=== PATIENT | female | born 1930 | race Caucasian/White ===

== ENCOUNTER 2018-05-14 20:18 | Inpatient (IN) | payer MEDICARE, MEDICAID ==
[2018-05-13 23:00] VITALS: BP 190/76
[~2018-05-14] VITALS: Ht 162.6 cm; Wt 81.2 kg
[~2018-05-14 20:18] MED LIST: ARIP2TAB11 PO; ASPI81TA31 PO; ATOR20TA27 PO; BISA5TAB10 PO; CIPR-262 PO; CYCL10TA9 PO; DOCU250C88 PO; DONE10TA44 PO; GABA600T2 PO; HYDR-3026 PO; HYDR-548 PO; HYDR4CRE2 RC; IBUP-1955 PO; LEVO50TA8 PO; LISI-607 PO; METF-440 PO; MORP15TA7 PO; MORP30TA PO; ONDA4TAB11 SL; OXYC-451 PO; RANI-551 PO; SENN8.6C5 PO; SERT50TA12 PO; TEMA15CA PO; TOPI100T38 PO; TRAZ-182 PO; [UNRECOGNIZED DRUG - OTHER] PO
--- NOTE | 2018-05-14 20:45 | NUR ---
PATIENT IN BED , AWAKE ALERT ,COHERENT ,ABLE TO ANSWER QUESTIONS AND APPEARS TO BE CALM .ON ROOM AIR ,NO RESPIRATORY DISTRESS NOTED BREATHING EVEN AND UNLABORED .KELLY X4.DENEIS PAIN WHEN ASKED , ADVISED PATIENT TO CALL FOR ASSISTANCE OR HELP AND NOT TO GET UP ALONE .
[2018-05-14 21:24] LABS: BASOPHILS # (AUTO) 0.1 K/uL (0.0-8.0); BASOPHILS % (AUTO) 0.7 % (0.0-2.0); EOSINOPHILS # (AUTO) 0.2 K/uL (0.0-0.7); EOSINOPHILS % (AUTO) 3.5 % (0.0-7.0); HEMATOCRIT 35.3 % (31.2-41.9); HEMOGLOBIN 11.8 g/dL (10.9-14.3); LYMPHOCYTES # (AUTO) 1.6 K/uL (20.0-40.0); LYMPHOCYTES % (AUTO) 22.9 % (20.5-51.5); MEAN CORPUSCULAR HEMOGLOBIN 32.7 uug (24.7-32.8); MEAN CORPUSCULAR HGB CONC 34 g/dL (32.3-35.6); MEAN CORPUSCULAR VOLUME 97.4 fL (75.5-95.3); MONOCYTES # (AUTO) 0.6 K/uL (2.0-10.0); MONOCYTES % (AUTO) 8.8 % (0.0-11.0); NEUTROPHILS # (AUTO) 4.5 K/uL (1.8-8.9); NEUTROPHILS % (AUTO) 64.1 % (38.5-71.5); PLATELET COUNT (AUTO) 201 K/uL (179-408); RED BLOOD CELL COUNT(AUTO) 3.62 MIL/uL (3.63-4.92)
[2018-05-14 21:38] LABS: CARBON DIOXIDE 29 mmol/L (21-32); CHLORIDE 103 mmol/L (98-107); CREATININE 1.1 mg/dL (0.6-1.3); GLUCOSE 125 mg/dL (74-106); POTASSIUM 4.5 mmol/L (3.5-5.1); UREA NITROGEN, BLOOD 35 mg/dL (7-18)
[2018-05-14 21:41] LABS: ETHANOL < 3 MG/DL (0-0)
[2018-05-14 21:43] LABS: ACETAMINOPHEN 11.7 ug/mL (10-30); ALANINE AMINOTRANSFERASE 22 U/L (14-59); ALKALINE PHOSPHATASE 73 U/L (50-136); ASPARTATE AMINOTRANSFERASE 16 U/L (15-37); BILIRUBIN,DIRECT < 0.1 mg/dL (0.0-0.2); BILIRUBIN,TOTAL 0.2 mg/dL (0.2-1.0); TOTAL PROTEIN, SERUM 7.6 g/dL (6.4-8.2)
[2018-05-14 21:47] LABS: THYROID STIMULATING HORMONE 0.767 mIU/mL (0.358-3.740)
--- NOTE | 2018-05-14 21:47 | NUR ---
EKG DONE AND GIVEN TO MD SKAGGS .
[2018-05-14] MEDS ORDERED: OMEG1CAP PO (22:32)
[2018-05-14] MEDS ORDERED: OXYC-128 PO ×2 (22:32)
[2018-05-14] MEDS ORDERED: MAGN400O6 PO (22:32)
[2018-05-14] MEDS ORDERED: TAMS0.4C34 PO (22:32)
[2018-05-14] MEDS ORDERED: CHOL20004 PO (22:32)
[2018-05-14] MEDS ORDERED: SIMV40TA2 PO (22:32)
[2018-05-14] MEDS ORDERED: PRED5DRO16 LEFTEYE (22:32)
[2018-05-14] MEDS ORDERED: TRAZ-182 PO (22:32)
[2018-05-14] MEDS ORDERED: LEVE250T2 PO (22:32)
[2018-05-14] MEDS ORDERED: BENZ0.5T43 PO (22:32)
[2018-05-14] MEDS ORDERED: PANT40TA2 PO (22:32)
[2018-05-14] MEDS ORDERED: CELE200C PO (22:32)
[2018-05-14] MEDS ORDERED: SERT50TA PO (22:32)
[2018-05-14] MEDS ORDERED: LIDO30AD10 TD (22:32)
[2018-05-14] MEDS ORDERED: MELA3TAB PO (22:32)
[2018-05-14] MEDS ORDERED: LEVO75TA7 PO (22:32)
[2018-05-14] MEDS ORDERED: ONDA4TAB5 PO (22:32)
[2018-05-14] MEDS ORDERED: BLOO-360 IN (22:32)
[2018-05-14] MEDS ORDERED: MAG-5 PO (22:32)
[2018-05-14] MEDS ORDERED: GABA800T2 PO (22:32)
[2018-05-14] MEDS ORDERED: SENN-18 PO (22:32)
[2018-05-14] MEDS ORDERED: HYDR-3326 PO (22:32)
[2018-05-14] MEDS ORDERED: ACET325T53 PO (22:32)
--- NOTE | 2018-05-14 22:32 | NUR ---
REPORT GIVEN TO SHANT WOODARD USING SBAR ,PATIENT IS GOING TO [address].
--- NOTE | 2018-05-14 22:33 | NUR ---
Pt. admitted to [facility] , under care of . Belongs List completed
--- NOTE | 2018-05-14 22:39 | NUR ---
PATIENT ASKED FOR FOOD GIVEN CHOCOLATE PUDDING AND ,APPLESAUCE AND CRANBERRY JUICE .PATIENT ABLE TO FEED SELF WITH GOOD APPETTITE.
[2018-05-14] MEDS ORDERED: MAGNESIUM HYDROXIDE 30 ML LIQUID UDC PO PRN (23:00)
[2018-05-14] MEDS ORDERED: MAG HYDROX/AL HYDROX/SIMETH 30 ML LIQUID UDC PO PRN (23:00)
--- NOTE | 2018-05-14 23:00 | NUR ---
ADMISSION NOTE: UPON FACE TO FACE ASSESSMENT, Pt APPEARS TO REFLECT WHAT IS ON THE HOLD. Pt PRESENTS HYPERVERBAL WITH PRESSURED SPEECH. PERSEVERATES ON HER LEFT ITEMS AT HER FACILITY AND IS FIXATED ON OPIOID PAIN MEDICATIONS. REPORTS 10/10 DEPRESSION AND ANXIETY DUE TO HER LIVING SITUATION AND THE SNF AND HER LACK OF FINANCES. A+Ox1-2, Pt ABLE TO STATE WHERE SHE WAS AT, BUT UNABLE TO NAME THE CORRECT DAY OR MONTH, ALSO UNABLE TO NAME THE CURRENT PRESIDENT. Pt HAS POOR INSIGHT INTO REASON FOR ADMISSION, AND STATES SHE IS HERE, "BECAUSE I COMPLAINED OF REALLY BAD ANXIETY AND THEY TOLD ME THEY COULDN'T GIVE ME ANYTHING UNTIL I SAW A PSYCHIATRIST AT THE HOSPITAL." Pt BLAMES THE DON AT HER FACILITY FOR "YELLING AT ME." EXHIBITS FLAT AFFECT AND LOW MOOD, IS RESTLESS AND ANXIOUS. APPEARS SOMEWHAT DISHEVELED. DENIES SI/HI/AH/VH. REFUSED SHOWER, SKIN CLEAN, DRY, AND INTACT. BP ELEVATED UPON ADMISSION, DR SAAVEDRA NOTIFIED, HYDRALAZINE 25MG X NOW AN Q 6 HOURS PRN, BP MORE STABLE UPON RE-CHECK. Pt C/O 10/10 BACK AND (R) ANKLE PAIN, NORCO 10/325 ORDERED AND ADMINISTERED WITH GOOD EFFECT. DR PYLE NOTIFIED OF ADMISSION, ORDERS RECEIVED, MEDICATIONS RECONCILED. Pt HAS A MEDICAL H/O HYPOTHYROIDISM, DM, SAD, HTN, INSOMNIA, GERD, OA, CHRONIC PAIN, DEMENTIA, TIA, AND AKF. CONTRABAND PLACED IN UNIT LOCKER.
[2018-05-14] MEDS: hydrALAZINE HCL 25 MG TABLET PO PRN (23:37)
[2018-05-14] MEDS: HYDROCODONE/APAP 10-325 MG TABLET PO PRN (23:38)
[2018-05-14] MEDS ORDERED: INSULIN REGULAR, HUMAN 300 UNIT/3 ML VIAL SQ PRN (23:45)
[2018-05-14] MEDS ORDERED: DEXTROSE 50% 50 ML DISP.SYRIN IV PRN (23:45)
[2018-05-15] MEDS: ACETAMINOPHEN 325 MG TABLET PO PRN (03:18)
[2018-05-15] MEDS: LORAZEPAM 0.5 MG TABLET PO PRN ×3 (03:18→22:31)
[2018-05-15 03:34] LABS: *BILIRUBIN,URIN NEGATIVE (NEGATIVE); *BLOOD, URINE NEGATIVE (NEGATIVE); *CLARITY,URINE CLEAR (CLEAR); *COLOR,URINE YELLOW (YELLOW); *KETONES,URINE NEGATIVE (NEGATIVE); *PROTEIN,URINE NEGATIVE (NEGATIVE); *UROBILINOGEN,URINE 0.2 E.U./dl (NORMAL); LEUKOCYTE ESTERASE ,URINE NEGATIVE (NEGATIVE); NITRITE, URINE NEGATIVE (NEGATIVE); UGLUCOSE NEGATIVE (NEGATIVE)
[2018-05-15 03:52] LABS: BACTERIA,URINE MANY /HPF (NONE SEEN); RBC,URINE 0-3 /HPF (0-3); SQUAMOUS EPITHELIAL CELL,UR MODERATE /HPF (NONE SEEN); WBC,URINE 0-3 /HPF (0-3)
[2018-05-15 03:57] LABS: *AMPHETAMINE, URINE NEGATIVE (NEGATIVE); *BARBITURATE, URINE NEGATIVE (NEGATIVE); *CANNABINOID, URINE POSITIVE (NEGATIVE); *COCCAINE, URINE NEGATIVE (NEGATIVE); *OPIATE, URINE POSITIVE (NEGATIVE); *PHENCYCLIDINE SCREEN,URINE NEGATIVE (NEGATIVE)
[2018-05-15] MEDS: BLOOD SUGAR DIAGNOSTIC 1 EACH STRIP VI SCH ×4 (06:40→20:49)
--- NOTE | 2018-05-15 06:52 | NUR ---
AM BS 116, NO COVERAGE PER SS.
[2018-05-15 07:30] VITALS: BP 164/90
[2018-05-15 07:48] LABS: MAGNESIUM 2.3 mg/dL (1.8-2.4); PHOSPHOROUS 3.8 mg/dL (2.5-4.9)
[2018-05-15] MEDS: HYDROCODONE/APAP 10-325 MG TABLET PO PRN ×2 (08:11→20:41)
[2018-05-15] MEDS: LISINOPRIL 10 MG TABLET PO SCH ×2 (08:11→20:32)
[2018-05-15] MEDS: NICOTINE 7 MG/24HR PATCH TD SCH (10:38)
--- NOTE | 2018-05-15 11:07 | NUR ---
Initial Discharge Instructions: Patient currently resides at [facility] [[address] [place] [address]; ]. Per pt, she would like to return there. Spoke with Darya at [facility] who states that the patient is on a 7 day bedhold. Spoke with patient's son, Carrington ([phone]) to gather collateral information. SW will continue to collaborate with pt, family, and MD regarding most appropriate discharge plans for this patient. SW will form a safe and proper discharge plan.
[2018-05-15] MEDS ORDERED: Medication Not On Formulary EA (Gabapentin 600 MG) PO SCH (13:00)
[2018-05-15] MEDS: PANTOPRAZOLE SODIUM 40 MG TABLET.DR PO SCH (14:40)
[2018-05-15] MEDS: ASPIRIN 81 MG TAB.CHEW PO SCH (14:41)
[2018-05-15] MEDS: LIDOCAINE 5% PATCH TD SCH (14:41)
[2018-05-15] MEDS: LEVETIRACETAM 250 MG TABLET PO SCH ×2 (14:41→20:32)
--- NOTE | 2018-05-15 14:49 | NUR ---
PRN ATIVAN ADMINISTERED FOR COMPLAINTS OF ANXIETY, NO CHANGE IN CONDITION NOTED, VITALS STABLE
[2018-05-15] MEDS: GABAPENTIN 300 MG CAPSULE PO SCH ×2 (14:59→20:30)
[2018-05-15 16:00] VITALS: BP 106/51
[2018-05-15] MEDS ORDERED: TOPIRAMATE 100 MG TABLET PO SCH (17:00)
[2018-05-15] MEDS: prednisoLONE ACET 1% OPHT DROP 5 ML BOTTLE LEFTEYE SCH (17:00)
[2018-05-15] MEDS: OMEGA-3 FATTY ACIDS/FISH OIL CAPSULE PO SCH (17:00)
[2018-05-15] MEDS ORDERED: BENZTROPINE MESYLATE 0.5 MG TABLET PO SCH (18:00)
[2018-05-15] MEDS: TAMSULOSIN HCL 0.4 MG CAP.SR.24H PO SCH (20:30)
[2018-05-15] MEDS: SIMVASTATIN 40 MG TABLET PO SCH (20:30)
[2018-05-15] MEDS: SENNOSIDES 1 TABLET PO SCH (20:31)
[2018-05-15] MEDS: hydrALAZINE HCL 25 MG TABLET PO PRN (20:32)
--- NOTE | 2018-05-15 21:00 | NUR ---
received to care, loud, demanding, anxious, and easily agitated. b/p at 1999 was 177/61. PRN hydralazine was given at 2031. PRN norco was given at 2040, for lower back pain 06/17. as of 2099, she remains agitated, but easy to redirect. currently watching tv, with peers. will continue to monitor closely.
[2018-05-15] MEDS: HALOPERIDOL 5 MG TABLET PO SCH (22:01)
[2018-05-15] MEDS: IBUPROFEN 400 MG TABLET PO PRN (22:01)
[2018-05-15] MEDS: BENZTROPINE MESYLATE 1 MG TABLET PO SCH (22:01)
[2018-05-15] MEDS: CARBAMAZEPINE 200 MG TABLET PO SCH (22:01)
--- NOTE | 2018-05-15 22:31 | NUR ---
b/p is now 147/73. pt was seen by Dr Sharma earlier, and he started her on haldol, cogentin, and tegretol. she remains anxious and restless, so she was given PRN ativan, at this time. currently in bed. will continue to monitor closely.
[2018-05-15 22:37] VITALS: BP 147/73
[2018-05-16] MEDS: ACETAMINOPHEN 325 MG TABLET PO PRN ×2 (00:25→06:26)
--- NOTE | 2018-05-16 00:25 | NUR ---
PRN tylenol given for headache. she then went back to bed.
--- NOTE | 2018-05-16 01:00 | NUR ---
appears to be asleep. no distress noted.
[2018-05-16] MEDS: LORAZEPAM 0.5 MG TABLET PO PRN ×2 (04:37→16:06)
--- NOTE | 2018-05-16 04:37 | NUR ---
PRN ativan given for anxiety.
[2018-05-16] MEDS: BLOOD SUGAR DIAGNOSTIC 1 EACH STRIP VI SCH ×4 (06:04→20:18)
[2018-05-16] MEDS: LEVOTHYROXINE SODIUM 75 MCG TABLET PO SCH (06:04)
--- NOTE | 2018-05-16 06:22 | NUR ---
appears calmer, now. slept 8 hours, total.
[2018-05-16 07:30] VITALS: BP 121/51
[2018-05-16] MEDS: LIDOCAINE 5% PATCH TD SCH (08:13)
[2018-05-16] MEDS: prednisoLONE ACET 1% OPHT DROP 5 ML BOTTLE LEFTEYE SCH ×2 (08:13→16:20)
[2018-05-16] MEDS: NICOTINE 7 MG/24HR PATCH TD SCH (08:14)
[2018-05-16] MEDS: PANTOPRAZOLE SODIUM 40 MG TABLET.DR PO SCH (08:14)
[2018-05-16] MEDS: OMEGA-3 FATTY ACIDS/FISH OIL CAPSULE PO SCH ×2 (08:14→16:20)
[2018-05-16] MEDS: GABAPENTIN 300 MG CAPSULE PO SCH ×2 (08:14→20:12)
[2018-05-16] MEDS: CHOLECALCIFEROL 1,000 UNIT TABLET PO SCH (08:14)
[2018-05-16] MEDS: BENZTROPINE MESYLATE 1 MG TABLET PO SCH ×2 (08:14→20:12)
[2018-05-16] MEDS: HALOPERIDOL 5 MG TABLET PO SCH ×2 (08:14→20:12)
[2018-05-16] MEDS: ASPIRIN 81 MG TAB.CHEW PO SCH (08:14)
[2018-05-16] MEDS: DOCUSATE SODIUM 250 MG CAPSULE PO SCH (08:15)
[2018-05-16] MEDS: LEVETIRACETAM 250 MG TABLET PO SCH ×2 (08:15→20:15)
[2018-05-16] MEDS: CARBAMAZEPINE 200 MG TABLET PO SCH ×2 (08:15→20:12)
[2018-05-16] MEDS: LISINOPRIL 10 MG TABLET PO SCH ×2 (08:16→20:12)
[2018-05-16] MEDS: HYDROCODONE/APAP 10-325 MG TABLET PO PRN ×3 (08:17→21:05)
[2018-05-16] MEDS ORDERED: CHOLECALCIFEROL U PO SCH (09:00)
[2018-05-16] MEDS ORDERED: MORPHINE SULFATE IR 30 MG TABLET PO SCH (09:00)
[2018-05-16] MEDS ORDERED: [UNRECOGNIZED DRUG - OTHER] PO SCH (09:00)
[2018-05-16 09:33] VITALS: BP 121/51
--- NOTE | 2018-05-16 14:42 | NUR ---
GPS: Nurses notes: Mood disturbance/depression: Patient awake and responding to her name, overly demanding at times, depressed mood, anxious affect, setting limits, but patient continue to be overly demanding. Redirected during shift. She has poor grooming, unkempt appearance, constantly asking for narcotics, needs prompting to participate in therapeutic groups, with episodes of pacing in the hallway, unable to formulate a viable plan for self care. Will continue with treatment plan.
[2018-05-16] MEDS: IBUPROFEN 400 MG TABLET PO PRN ×2 (14:51→22:27)
[2018-05-16 15:09] VITALS: BP 115/44
--- NOTE | 2018-05-16 16:54 | NUR ---
GPS: Nursing Notes: FBS: Patient's KYD=[id number], continue with Insulin sliding scale per MD order, continue treatment plan.
[2018-05-16] MEDS: SENNOSIDES 1 TABLET PO SCH (20:12)
[2018-05-16] MEDS: SIMVASTATIN 40 MG TABLET PO SCH (20:12)
[2018-05-16] MEDS: TAMSULOSIN HCL 0.4 MG CAP.SR.24H PO SCH (20:12)
[2018-05-16 20:29] VITALS: BP 129/52
[2018-05-16] MEDS: TEMAZEPAM 7.5 MG CAPSULE PO PRN (22:27)
[2018-05-17] MEDS: ACETAMINOPHEN 325 MG TABLET PO PRN ×3 (02:47→23:03)
[2018-05-17] MEDS: LORAZEPAM 0.5 MG TABLET PO PRN ×3 (04:34→23:03)
[2018-05-17] MEDS: HYDROCODONE/APAP 10-325 MG TABLET PO PRN ×3 (04:38→17:18)
--- NOTE | 2018-05-17 04:40 | NUR ---
GPS: Pt.is anxious,restless and complaining of severe pain on both of her legs. Medicated as ordered. Re-assured frequently. Rest periods encouraged to facilitate relief. Will continue to monitor.
[2018-05-17] MEDS: LEVOTHYROXINE SODIUM 75 MCG TABLET PO SCH (06:23)
[2018-05-17] MEDS: BLOOD SUGAR DIAGNOSTIC 1 EACH STRIP VI SCH ×4 (06:32→20:16)
[2018-05-17 07:30] VITALS: BP 138/48
[2018-05-17] MEDS: NICOTINE 7 MG/24HR PATCH TD SCH (08:29)
[2018-05-17] MEDS: prednisoLONE ACET 1% OPHT DROP 5 ML BOTTLE LEFTEYE SCH ×2 (08:29→17:17)
[2018-05-17] MEDS: LIDOCAINE 5% PATCH TD SCH (08:29)
[2018-05-17] MEDS: LEVETIRACETAM 250 MG TABLET PO SCH ×2 (08:30→20:19)
[2018-05-17] MEDS: GABAPENTIN 300 MG CAPSULE PO SCH ×2 (08:30→20:19)
[2018-05-17] MEDS: OMEGA-3 FATTY ACIDS/FISH OIL CAPSULE PO SCH ×2 (08:30→17:18)
[2018-05-17] MEDS: BENZTROPINE MESYLATE 1 MG TABLET PO SCH ×2 (08:30→17:27)
[2018-05-17] MEDS: CHOLECALCIFEROL 1,000 UNIT TABLET PO SCH (08:30)
[2018-05-17] MEDS: ASPIRIN 81 MG TAB.CHEW PO SCH (08:30)
[2018-05-17] MEDS: DOCUSATE SODIUM 250 MG CAPSULE PO SCH (08:30)
[2018-05-17] MEDS: PANTOPRAZOLE SODIUM 40 MG TABLET.DR PO SCH (08:30)
[2018-05-17] MEDS: HALOPERIDOL 5 MG TABLET PO SCH ×2 (08:30→17:27)
[2018-05-17] MEDS: CARBAMAZEPINE 200 MG TABLET PO SCH ×2 (08:30→20:19)
[2018-05-17] MEDS: LISINOPRIL 10 MG TABLET PO SCH ×2 (08:31→20:19)
[2018-05-17] MEDS: IBUPROFEN 400 MG TABLET PO PRN (10:26)
[2018-05-17] MEDS: hydrALAZINE HCL 25 MG TABLET PO PRN (11:53)
[2018-05-17 16:11] VITALS: BP 130/50
[2018-05-17 20:00] VITALS: BP 137/63
[2018-05-17] MEDS: SENNOSIDES 1 TABLET PO SCH (20:19)
[2018-05-17] MEDS: SIMVASTATIN 40 MG TABLET PO SCH (20:19)
[2018-05-17] MEDS: TAMSULOSIN HCL 0.4 MG CAP.SR.24H PO SCH (20:19)
[2018-05-17] MEDS: TEMAZEPAM 7.5 MG CAPSULE PO PRN (22:16)
[2018-05-18] MEDS: HYDROCODONE/APAP 10-325 MG TABLET PO PRN ×4 (02:55→22:05)
--- NOTE | 2018-05-18 03:20 | NUR ---
GPS: Pt. constantly at nurses station and asking for her [place]. Pt. was reminded that she just got it not too long ago. Pt.is very forgetful at this time. Constant re-assurance/re-direction provided by staff at this time. Instructed to rest in bed to facilitate relief. Will continue to monitor.
[2018-05-18] MEDS: LEVOTHYROXINE SODIUM 75 MCG TABLET PO SCH (06:20)
[2018-05-18 07:30] VITALS: BP 120/54
--- NOTE | 2018-05-18 08:05 | NUR ---
Pt.in bed A/A/Ox2,no s/s of distress,denies pain @ time.
[2018-05-18] MEDS: DOCUSATE SODIUM 250 MG CAPSULE PO SCH (08:10)
[2018-05-18] MEDS: OMEGA-3 FATTY ACIDS/FISH OIL CAPSULE PO SCH ×2 (08:10→16:49)
[2018-05-18] MEDS: prednisoLONE ACET 1% OPHT DROP 5 ML BOTTLE LEFTEYE SCH (08:10)
[2018-05-18] MEDS: BENZTROPINE MESYLATE 1 MG TABLET PO SCH ×3 (08:10→16:49)
[2018-05-18] MEDS: CHOLECALCIFEROL 1,000 UNIT TABLET PO SCH (08:11)
[2018-05-18] MEDS: GABAPENTIN 300 MG CAPSULE PO SCH ×2 (08:11→20:03)
[2018-05-18] MEDS: ASPIRIN 81 MG TAB.CHEW PO SCH (08:11)
[2018-05-18] MEDS: LISINOPRIL 10 MG TABLET PO SCH ×2 (08:11→20:04)
[2018-05-18] MEDS: HALOPERIDOL 5 MG TABLET PO SCH ×3 (08:11→16:49)
[2018-05-18] MEDS: LEVETIRACETAM 250 MG TABLET PO SCH ×2 (08:11→20:05)
[2018-05-18] MEDS: NICOTINE 7 MG/24HR PATCH TD SCH (08:11)
[2018-05-18] MEDS: CARBAMAZEPINE 200 MG TABLET PO SCH (08:11)
[2018-05-18] MEDS: PANTOPRAZOLE SODIUM 40 MG TABLET.DR PO SCH (08:11)
[2018-05-18] MEDS: LIDOCAINE 5% PATCH TD SCH (08:11)
[2018-05-18] MEDS: LORAZEPAM 0.5 MG TABLET PO PRN ×2 (08:17→15:32)
[2018-05-18 12:34] LABS: *BILIRUBIN,URIN NEGATIVE (NEGATIVE); *BLOOD, URINE NEGATIVE (NEGATIVE); *CLARITY,URINE CLEAR (CLEAR); *COLOR,URINE YELLOW (YELLOW); *KETONES,URINE NEGATIVE (NEGATIVE); *PROTEIN,URINE NEGATIVE (NEGATIVE); *UROBILINOGEN,URINE 0.2 E.U./dl (NORMAL); LEUKOCYTE ESTERASE ,URINE NEGATIVE (NEGATIVE); NITRITE, URINE NEGATIVE (NEGATIVE); UGLUCOSE NEGATIVE (NEGATIVE)
--- NOTE | 2018-05-18 13:47 | NUR ---
DC Planning Note: Spoke with Vanda at [facility] ([address] [place] [address]; [phone]). Vanda made aware of DC plan for patient to return to [facility] upon discharge, as patient is still on 7-day bed hold that expires on 03/20/18. YANNICK will continue to collaborate with treatment team to ensure safe discharge plan.
[2018-05-18 15:39] VITALS: BP 163/70
[2018-05-18 16:44] LABS: ALANINE AMINOTRANSFERASE 22 U/L (14-59); ALKALINE PHOSPHATASE 73 U/L (50-136); ASPARTATE AMINOTRANSFERASE 22 U/L (15-37); BILIRUBIN,TOTAL 0.2 mg/dL (0.2-1.0); CARBON DIOXIDE 23 mmol/L (21-32); CHLORIDE 93 mmol/L (98-107); GLUCOSE 106 mg/dL (74-106); MAGNESIUM 1.8 mg/dL (1.8-2.4); POTASSIUM 4.6 mmol/L (3.5-5.1); TOTAL PROTEIN, SERUM 7.6 g/dL (6.4-8.2); UREA NITROGEN, BLOOD 20 mg/dL (7-18)
--- NOTE | 2018-05-18 17:18 | NUR ---
Pt.in activity room watching TV,denies any pain,no s/s of distress.
--- NOTE | 2018-05-18 18:00 | NUR ---
PT'S SODIUM IS 124 AT 1600 TODAY. LAST SODIUM ON 05/[address] SAAVEDRA WAS NOTIFIED. NO NEW ORDERS AT THIS TIME.
[2018-05-18] MEDS: IBUPROFEN 400 MG TABLET PO PRN (18:20)
[2018-05-18 19:30] VITALS: BP 168/72
[2018-05-18] MEDS: SENNOSIDES 1 TABLET PO SCH (20:03)
[2018-05-18] MEDS: TAMSULOSIN HCL 0.4 MG CAP.SR.24H PO SCH (20:03)
[2018-05-18] MEDS: SIMVASTATIN 40 MG TABLET PO SCH (20:04)
[2018-05-18 21:20] VITALS: BP 149/53
[2018-05-18] MEDS: TEMAZEPAM 7.5 MG CAPSULE PO PRN (23:08)
[2018-05-19] MEDS: LORAZEPAM 0.5 MG TABLET PO PRN ×2 (01:29→08:18)
--- NOTE | 2018-05-19 01:30 | NUR ---
GPS: Pt.is anxious and restless at this time. Frequently at nurses station and asking for more meds.to take. Pt.is forgetful,irritable and difficult to re-direct. Re-assured frequently by staff. Ativan 0.25 mg given. Also was given Tyl. 650 mg for sharon.leg pains. Encouraged to stay in bed/rest to facilitate relief. Will continue to monitor.
[2018-05-19] MEDS: ACETAMINOPHEN 325 MG TABLET PO PRN (01:31)
[2018-05-19] MEDS: LEVOTHYROXINE SODIUM 75 MCG TABLET PO SCH (06:03)
--- NOTE | 2018-05-19 06:25 | NUR ---
GPS: Pt.is up on her w/c at this time and able to wheel self around the unit. Less anxious and restless at this time. Re-directed and re-assured prn. Denies any pain at this time when asked. Safety emphasized. Will continue to monitor.
[2018-05-19 07:30] VITALS: BP 131/46
[2018-05-19 07:30] LABS: CARBON DIOXIDE 24 mmol/L (21-32); CHLORIDE 93 mmol/L (98-107); CREATININE 0.8 mg/dL (0.6-1.3); GLUCOSE 111 mg/dL (74-106); POTASSIUM 4.2 mmol/L (3.5-5.1); UREA NITROGEN, BLOOD 22 mg/dL (7-18)
[2018-05-19] MEDS: LEVETIRACETAM 250 MG TABLET PO SCH ×2 (08:16→20:20)
[2018-05-19] MEDS: OMEGA-3 FATTY ACIDS/FISH OIL CAPSULE PO SCH ×2 (08:16→17:24)
[2018-05-19] MEDS: BENZTROPINE MESYLATE 1 MG TABLET PO SCH ×2 (08:16→12:27)
[2018-05-19] MEDS: GABAPENTIN 300 MG CAPSULE PO SCH ×3 (08:16→20:20)
[2018-05-19] MEDS: PANTOPRAZOLE SODIUM 40 MG TABLET.DR PO SCH (08:17)
[2018-05-19] MEDS: HYDROCODONE/APAP 10-325 MG TABLET PO PRN ×3 (08:17→22:00)
[2018-05-19] MEDS: ASPIRIN 81 MG TAB.CHEW PO SCH (08:17)
[2018-05-19] MEDS: DOCUSATE SODIUM 250 MG CAPSULE PO SCH (08:17)
[2018-05-19] MEDS: CHOLECALCIFEROL 1,000 UNIT TABLET PO SCH (08:17)
[2018-05-19] MEDS: LIDOCAINE 5% PATCH TD SCH (08:18)
[2018-05-19] MEDS: NICOTINE 7 MG/24HR PATCH TD SCH (08:18)
[2018-05-19] MEDS: LISINOPRIL 10 MG TABLET PO SCH ×2 (08:18→20:21)
[2018-05-19] MEDS: HALOPERIDOL 5 MG TABLET PO SCH ×4 (08:20→23:46)
--- NOTE | 2018-05-19 10:29 | NUR ---
Firearms Report: Philanthropy Officer completed and submitted [employer] report on 05/19/18 for 5250 GD certification.
[2018-05-19] MEDS: IBUPROFEN 400 MG TABLET PO PRN (12:30)
--- NOTE | 2018-05-19 13:36 | NUR ---
DC Planning Note: Vanda ([phone]) from [facility] came to meet with patient at bedside. Per Vanda, she has found placement for the patient at a [facility]. When speaking with the patient about placement, pt refused to go there without "looking at it first." It was explained to patient that she cannot leave the hospital to go tour the potential [facility]. Patient refused placement. Per Vanda, the patient can return to [facility] and tour [facility] while under their care. SW will continue to follow-up.
[2018-05-19] MEDS ORDERED: BENZTROPINE MESYLATE 1 MG TABLET PO SCH (17:00)
[2018-05-19 17:23] VITALS: BP 150/52
[2018-05-19] MEDS: BENZTROPINE MESYLATE 0.5 MG TABLET PO SCH (17:24)
[2018-05-19] MEDS: SODIUM CHLORIDE 1,000 MG TABLET PO SCH (17:25)
--- NOTE | 2018-05-19 17:53 | NUR ---
GPS: Nursing Notes: Severe Agitation: Patient became loud and angry toward staff, believes that no doctor came to see her, unable to be redirected, restless, verbal abusive toward staff, trying to throw herself on the floor, then spit to staff on the face, trying to scratch staff, unable to be redirected, restless behavior, Dr. Alfaro called, continue to monitor patient, continue with treatment plan.
[2018-05-19] MEDS ORDERED: HALOPERIDOL LACTATE 5 MG/1 ML VIAL IM STA (18:02)
[2018-05-19] MEDS ORDERED: LORAZEPAM 2 MG/1 ML VIAL IM STA (18:02)
[2018-05-19] MEDS ORDERED: diphenhydrAMINE 50 MG/1 ML VIAL IM STA (18:02)
--- NOTE | 2018-05-19 18:10 | NUR ---
GPS: Nursing Notes: Discontinue Chemical Restraint: Patient became calm and following staff directions, stated that no doctor came to see her and she was feeling frustrated, redirected and reoriented to reality, explained to her that her psychiatrist and cemetery manager came to see her today, but believes that staff is lying to her, patient was calm and cooperative with staff, IM medications were not given due to her cooperative and calm behavior, continue to monitor for safety, continue with treatment plan.
[2018-05-19] MEDS ORDERED: LORAZEPAM 2 MG/1 ML VIAL ONE (18:27)
[2018-05-19 20:04] VITALS: BP 168/73
[2018-05-19] MEDS: TAMSULOSIN HCL 0.4 MG CAP.SR.24H PO SCH (20:20)
--- NOTE | 2018-05-19 20:20 | NUR ---
GPS: Pt.is anxious,irritable and needy. Constantly at nurses station asking for meds.to be given to her. Re-directed and re-assured prn. Safety emphasized. Insight and judgement remains impaired. Will continue to monitor.
[2018-05-19] MEDS: SENNOSIDES 1 TABLET PO SCH (20:21)
[2018-05-19] MEDS: SIMVASTATIN 40 MG TABLET PO SCH (20:21)
[2018-05-19] MEDS ORDERED: LEVETIRACETAM 250 MG TABLET PO SCH (21:00)
[2018-05-19] MEDS ORDERED: MIRTAZAPINE 15 MG TABLET PO SCH (21:00)
[2018-05-19] MEDS ORDERED: LEVETIRACETAM 500 MG TABLET PO SCH ×2 (21:00)
--- NOTE | 2018-05-19 21:05 | NUR ---
GPS: Pt. was sitting on the sumaya chair by nurses station when she suddenly decided to get up and the sumaya chair moved back and caused her to slide down on the floor. Pt.was assisted back up on the chair. No injuries reported. No new complaints of pain verbalized. Instructed to call for assistance prn. Will continue to monitor. VSS. made aware.
--- NOTE | 2018-05-19 23:00 | NUR ---
GPS: called inquiring about pts.current behavior. Pt.remains anxious,easily irritable/agitated when being re-directed and when meds.are not given to her promptly. Continues to complain that she has not been seen by her medical doctor in days. MD with order,carried-out. Pt.was made aware of MD's order. Pt.also complaining that her meds. are not working for her. Re-assured prn. Denies pain at this time caused by her sliding down on the floor earlier. Will continue to monitor.
[2018-05-19] MEDS ORDERED: HALOPERIDOL 5 MG TABLET ONE (23:50)
[2018-05-20] MEDS: HYDROCODONE/APAP 10-325 MG TABLET PO PRN ×4 (02:26→23:25)
--- NOTE | 2018-05-20 04:22 | NUR ---
GPS: Up on her w/c at this time without any complaints of pain verbalized. Denies feeling anxious. Fluid restriction of 800ml/24 hrs.continues and verbalized compliance. Safety emphasized. Will continue to monitor.
[2018-05-20] MEDS: LEVOTHYROXINE SODIUM 75 MCG TABLET PO SCH (06:16)
[2018-05-20 07:30] VITALS: BP 149/57
[2018-05-20 07:31] LABS: BASOPHILS % (AUTO) 0.6 % (0.0-2.0); EOSINOPHILS # (AUTO) 0.2 K/uL (0.0-0.7); EOSINOPHILS % (AUTO) 2.9 % (0.0-7.0); HEMATOCRIT 35.4 % (31.2-41.9); HEMOGLOBIN 12.1 g/dL (10.9-14.3); LYMPHOCYTES # (AUTO) 1.3 K/uL (20.0-40.0); LYMPHOCYTES % (AUTO) 22.4 % (20.5-51.5); MEAN CORPUSCULAR HEMOGLOBIN 33.6 uug (24.7-32.8); MEAN CORPUSCULAR HGB CONC 34 g/dL (32.3-35.6); MEAN CORPUSCULAR VOLUME 98.2 fL (75.5-95.3); MONOCYTES # (AUTO) 0.8 K/uL (2.0-10.0); MONOCYTES % (AUTO) 13.4 % (0.0-11.0); NEUTROPHILS # (AUTO) 3.5 K/uL (1.8-8.9); NEUTROPHILS % (AUTO) 60.7 % (38.5-71.5); PLATELET COUNT (AUTO) 190 K/uL (179-408); RED BLOOD CELL COUNT(AUTO) 3.61 MIL/uL (3.63-4.92); WHITE BLOOD COUNT (AUTO) 5.7 K/uL (3.8-11.8)
[2018-05-20 07:47] LABS: ALANINE AMINOTRANSFERASE 19 U/L (14-59); ALKALINE PHOSPHATASE 77 U/L (50-136); ASPARTATE AMINOTRANSFERASE 21 U/L (15-37); BILIRUBIN,TOTAL 0.2 mg/dL (0.2-1.0); CARBON DIOXIDE 27 mmol/L (21-32); CHLORIDE 94 mmol/L (98-107); CREATININE 0.8 mg/dL (0.6-1.3); GLUCOSE 108 mg/dL (74-106); MAGNESIUM 2.2 mg/dL (1.8-2.4); PHOSPHOROUS 3.6 mg/dL (2.5-4.9); POTASSIUM 4.4 mmol/L (3.5-5.1); TOTAL PROTEIN, SERUM 7.5 g/dL (6.4-8.2); UREA NITROGEN, BLOOD 23 mg/dL (7-18)
[2018-05-20] MEDS: LIDOCAINE 5% PATCH TD SCH (08:27)
[2018-05-20] MEDS: SODIUM CHLORIDE 1,000 MG TABLET PO SCH ×3 (08:27→16:36)
[2018-05-20] MEDS: LISINOPRIL 10 MG TABLET PO SCH ×2 (08:28→21:43)
[2018-05-20] MEDS: HALOPERIDOL 5 MG TABLET PO SCH ×4 (08:28→21:44)
[2018-05-20] MEDS: PANTOPRAZOLE SODIUM 40 MG TABLET.DR PO SCH (08:28)
[2018-05-20] MEDS: CHOLECALCIFEROL 1,000 UNIT TABLET PO SCH (08:28)
[2018-05-20] MEDS: LEVETIRACETAM 250 MG TABLET PO SCH ×2 (08:28→21:45)
[2018-05-20] MEDS: OMEGA-3 FATTY ACIDS/FISH OIL CAPSULE PO SCH ×2 (08:28→16:36)
[2018-05-20] MEDS: GABAPENTIN 300 MG CAPSULE PO SCH ×4 (08:28→21:43)
[2018-05-20] MEDS: DOCUSATE SODIUM 250 MG CAPSULE PO SCH (08:28)
[2018-05-20] MEDS: ASPIRIN 81 MG TAB.CHEW PO SCH (08:28)
[2018-05-20] MEDS: BENZTROPINE MESYLATE 0.5 MG TABLET PO SCH ×3 (08:28→16:36)
[2018-05-20] MEDS: NICOTINE 7 MG/24HR PATCH TD SCH (08:29)
[2018-05-20 10:09] VITALS: BP 150/62
[2018-05-20] MEDS ORDERED: BISACODYL 10 MG SUPP.RECT RC PRN (12:45)
--- NOTE | 2018-05-20 13:13 | NUR ---
Discharge Planning Note: Consulted with Dr. Alfaro about discharge date for patient. Per Dr. Alfaro, plan is to DC patient tomorrow (05/21/18) back to [facility]. Strike Warfare/Missile Systems Officer contacted Vanda at [facility] (contact information in this marketing writer's notes), to alert about patient's DC. Vanda aware and agreeable to accept patient back. SW will continue to follow-up.
[2018-05-20] MEDS ORDERED: BISACODYL 10 MG SUPP.RECT RC ONE (13:55)
[2018-05-20 16:11] VITALS: BP 163/54
[2018-05-20] MEDS: IBUPROFEN 400 MG TABLET PO PRN (16:36)
--- NOTE | 2018-05-20 18:08 | NUR ---
GPS: Nursing Notes: ANXIETY: Patient is loud anxious, frequently requesting PRN meds soon after already receiving them, patient is demanding. patient requires frequent redirection frequently at nursing station, needy demanding, poor insight and judgement. .
[2018-05-20] MEDS: LORAZEPAM 0.5 MG TABLET PO PRN (18:40)
--- NOTE | 2018-05-20 18:40 | NUR ---
GPS/RN- patient continues anxious this afternoon, verbalizing she needs something because she does not feel well. patient with poor sleep pattern at hs and minimal rest today. patient frequently requesting PRN. blood pressure stable and blood sugar checked for patient emotional redirection, PRN ativan given at this time continue to monitor
[2018-05-20 19:32] VITALS: BP 121/44
[2018-05-20] MEDS ORDERED: Z GUARD REMEDY PASTE 57 GM TUBE TOP PRN (20:30)
[2018-05-20] MEDS ORDERED: diphenhydrAMINE 25 MG CAP PO PRN (20:30)
[2018-05-20] MEDS ORDERED: TRAZODONE 50 MG TABLET PO SCH (21:00)
[2018-05-20] MEDS: SENNOSIDES 1 TABLET PO SCH (21:42)
[2018-05-20] MEDS: TAMSULOSIN HCL 0.4 MG CAP.SR.24H PO SCH (21:42)
[2018-05-20] MEDS: SIMVASTATIN 40 MG TABLET PO SCH (21:43)
[2018-05-20] MEDS ORDERED: TRAZODONE 50 MG TABLET ONE (21:57)
[2018-05-21] MEDS: TEMAZEPAM 7.5 MG CAPSULE PO PRN (00:13)
[2018-05-21] MEDS: LORAZEPAM 0.5 MG TABLET PO PRN (01:17)
--- NOTE | 2018-05-21 05:52 | NUR ---
Received pt, pt was in her room laying in the bed talking to her roommate. Pt was pleasant, requested a tuna sandwich, pudding and apple juice. Pt c/o pain 12/10 in her abdomen area. Pt received all scheduled meds and available PRN's, pt showered with teletypewriter operator assistance, pt bedsheets were changed. Pt became argumentative when she was not able to receive her norco when she wanted it due to her scheduled med administration and teletypewriter operator instructed her that it would need to be in 1 hour. Pt started shouting, being unruly, says that she is going to report developer and other staff. Pt PRN's were given when appropriate, pt then repeatedly came to nursing station stating that it was not norco she was given because of "the way the pill looked". Pt later given PRN ativan 0.25mg for anxiety and benadryl for her itching. Pt believes that she has bed bugs. Pt showed staff suspected bed bug but staff instructed her that it was a piece of cotton and crumbs from the food that she ate in bed, staff cleaned off sheets. Pt disagrees that it is cotton and continues to insist that she "saw it crawling".
[2018-05-21] MEDS: LEVOTHYROXINE SODIUM 75 MCG TABLET PO SCH (06:41)
[2018-05-21] MEDS: HYDROCODONE/APAP 10-325 MG TABLET PO PRN ×2 (06:44→12:53)
[2018-05-21 07:15] LABS: CARBON DIOXIDE 27 mmol/L (21-32); CHLORIDE 94 mmol/L (98-107); GLUCOSE 139 mg/dL (74-106); POTASSIUM 4.5 mmol/L (3.5-5.1); UREA NITROGEN, BLOOD 30 mg/dL (7-18)
[2018-05-21 07:30] VITALS: BP 118/66
[2018-05-21] MEDS: BENZTROPINE MESYLATE 0.5 MG TABLET PO SCH ×2 (09:00→12:47)
[2018-05-21] MEDS: LEVETIRACETAM 250 MG TABLET PO SCH (09:00)
[2018-05-21] MEDS: OMEGA-3 FATTY ACIDS/FISH OIL CAPSULE PO SCH (09:01)
[2018-05-21] MEDS: DOCUSATE SODIUM 250 MG CAPSULE PO SCH (09:01)
[2018-05-21] MEDS: GABAPENTIN 300 MG CAPSULE PO SCH ×2 (09:01→12:47)
[2018-05-21] MEDS: HALOPERIDOL 5 MG TABLET PO SCH ×2 (09:02→12:47)
[2018-05-21] MEDS: SODIUM CHLORIDE 1,000 MG TABLET PO SCH ×2 (09:02→12:47)
[2018-05-21] MEDS: ASPIRIN 81 MG TAB.CHEW PO SCH (09:02)
[2018-05-21] MEDS: CHOLECALCIFEROL 1,000 UNIT TABLET PO SCH (09:03)
[2018-05-21] MEDS: PANTOPRAZOLE SODIUM 40 MG TABLET.DR PO SCH (09:03)
[2018-05-21 09:04] VITALS: BP 118/66
[2018-05-21] MEDS: LISINOPRIL 10 MG TABLET PO SCH (09:04)
[2018-05-21] MEDS: LIDOCAINE 5% PATCH TD SCH (09:04)
[2018-05-21] MEDS: NICOTINE 7 MG/24HR PATCH TD SCH (09:04)
--- NOTE | 2018-05-21 10:18 | NUR ---
DC Note: Patient will be discharged back to [facility] [[address] [place] [address]; ] via ambulance. Please arrange an ambulance for this patient. Spoke with Vanda at the facility who states they are ready to accept the patient back today. Spoke with patients son, Carrington ([phone]) who is aware of discharge plans. Patient is aware and agreeable with discharge plans. Patient will follow-up at the facility with Dr. Aden ([employer]) and Dr. Alfaro (Psychiatrist). For smoking cessation, patient was referred to [employer] 800-LUNGUSA and [employer] [facility] [phone].
--- NOTE | 2018-05-21 13:45 | NUR ---
Offered Ativan to the patient but she refused
--- NOTE | 2018-05-21 14:00 | NUR ---
Patient refused to be discharged at time of berry picker machine operator by ambulance stating she wanted to see the doctor and didn't like the food, refused vital signs to be checked. Patient refused to sign all discharge papers and valuables. All belongings and valuables all accounted for. bunker worker Enedelia Stewart notified and spoke with the patient. Dr. Alfaro spoke with the patient on the phone but patient still not cooperating. Patient seen by INDUSTRIAL MANAGEMENT TEACHER Deshawn Aguilar and DNP Aden Fuentes. Patient ready for discharge, picked up by Saranya at 1355 via gurney. Patient discharged to [facility] in stable condition.
--- NOTE | 2018-05-21 19:30 | NUR ---
Returned to pharmacy c/o María the ativan since patient's name is not anymore found in the pyxis and cannot return the medication.
[2018-05-21] MEDS ORDERED: TRAZODONE 50 MG TABLET PO SCH (21:00)
== END 2018-05-21 13:55 | DRG 885 ==
LOC: ER 20:38 → GPS 22:37
PROVIDERS: ADMIT Psychiatry & Neurology Psychosomatic Medicine; ATTEND Internal Medicine
PROC: 0HBRXZZ Excision of Toe Nail, External Approach (ICD-10-PCS; principal; 2018-05-20)
DX: F25.0 Schizoaffective disorder, bipolar type (principal); E87.1 Hypo-osmolality and hyponatremia; F03.91 Unspecified dementia, unspecified severity, with behavioral disturbance; E78.5 Hyperlipidemia, unspecified; E66.9 Obesity, unspecified; E03.9 Hypothyroidism, unspecified; E86.0 Dehydration; F17.210 Nicotine dependence, cigarettes, uncomplicated; F41.9 Anxiety disorder, unspecified; G89.4 Chronic pain syndrome; K21.9 Gastro-esophageal reflux disease without esophagitis; K59.00 Constipation, unspecified; M19.90 Unspecified osteoarthritis, unspecified site; M54.10 Radiculopathy, site unspecified; Z86.73 Personal history of transient ischemic attack (TIA), and cerebral infarction without residual deficits; I10 Essential (primary) hypertension; E11.42 Type 2 diabetes mellitus with diabetic polyneuropathy; Z79.84 Long term (current) use of oral hypoglycemic drugs; R82.6 Abnormal urine levels of substances chiefly nonmedicinal as to source; Z68.30 Body mass index [BMI] 30.0-30.9, adult; M25.571 Pain in right ankle and joints of right foot
CPT/HCPCS: 36415; 70030-TC; 71045; 73630; 80307; 82533; 83735; 84100; 84443; 85025; 85730; 87086; 93005; A4663; A9150; G0480; G0480-TC; J1200; J1630; J1815; J2060; J2650; Q0163